=== PATIENT | female | born 1975 | race Two or more races ===

== ENCOUNTER 2018-06-09 23:33 | Emergency (ER) | payer OTHER, BC ==
[2018-06-10] VITALS: BP 109/69
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
== END 2018-06-10 01:28 | disposition home or self-care (01) ==
LOC: ER 23:33
DX: M54.2 Cervicalgia (principal); M54.89 Other dorsalgia; M62.838 Other muscle spasm; R51 Headache; V49.40XA Driver injured in collision with unspecified motor vehicles in traffic accident, initial encounter; R29.898 Other symptoms and signs involving the musculoskeletal system
CPT/HCPCS: 99283